=== PATIENT | female | born 1960 | race African-American/Black ===

== ENCOUNTER → 2016-04-20 | Outpatient (CLI) | payer OTHER ==
[2014-12-13 14:05] VITALS: BP 124/61
--- NOTE | 2016-04-21 09:31 | RAD ---
DATE: 04/20/2016 EXAM: DIGITAL SCREEN BILAT W/CAD HISTORY: Routine screening COMPARISON: Baseline study This study was interpreted with the benefit of Computerized Aided Detection (CAD). FINDINGS: There are scattered fibroglandular densities in the breasts. There is a 6 mm smooth nodular opacity projected over the upper outer quadrant of the right breast. There is a slightly smaller nodule projected over the posterior aspect of the right breast near the midline on the cc view, probably lying at the 6:00 location. A more elongated small nodular opacity projected over the posterior aspect of the left breast near the midline in the CC projection demonstrates a hilar lucency and may be a lymph node. Minimal benign type calcifications are noted. No suspicious microcalcifications are evident. IMPRESSION: Small bilateral breast nodules as described above. Diagnostic mammograms to include spot compression and straight medial lateral views and potentially breast ultrasound is suggested for further evaluation. BI-RADS CATEGORY: 0 INCOMPLETE: NEEDS ADDITIONAL IMAGING EVALUATION AND/OR PRIOR MAMMOGRAMS FOR COMPARISON. RECOMMENDED FOLLOW-UP: ADD ADDITIONAL IMAGING PQRS compliance statement: Patient information was entered into a reminder system with a target due date for the next mammogram. Mammography is a sensitive method for finding small breast cancers, but it does not detect them all and is not a substitute for careful clinical examination. A negative mammogram does not negate a clinically suspicious finding and should not result in delay in biopsying a clinically suspicious abnormality. "Our facility is accredited by the [employer] Mammography [employer]."
== END | disposition home or self-care (01) ==
LOC: MAMMO 17:06
DX: Z12.31 Encounter for screening mammogram for malignant neoplasm of breast (principal)
CPT/HCPCS: G0202; 77067

== ENCOUNTER → 2016-04-30 | Outpatient (CLI) | payer OTHER ==
[2014-12-13 14:05] VITALS: BP 124/61
--- NOTE | 2016-04-30 14:54 | RAD ---
DATE: 04/30/16 EXAM: Bilateral digital diagnostic mammograms and bilateral breast ultrasound HISTORY: Nodules seen in both breasts on screening baseline mammogram COMPARISON: None available, this is a baseline exam This study was interpreted with the benefit of Computerized Aided Detection (CAD). TECHNIQUE: 90 the mediolateral as well as CC spot compression views of both breasts are obtained. FINDINGS: Mammogram: 2 well-defined nodules are seen in the right breast one of which is in the outer and upper right breast probably at 10:00 position and the second nodule is situated at 6:00 position and which persists on the spot compression views. There is also a nodularity in the in the left breast which also persists. Ultrasound to follow. Bilateral breast ultrasound was performed in the areas of concern. There is a 5.0 x 2.9 mm anechoic cyst behind the right nipple. There is also a 4.9 x 4.8 mm anechoic cyst with fine internal echoes at 10:00 position in the right breast. Both these correspond to the areas of mammographic concern Scanning in the left breast demonstrates a 6.3 mm lymph node deep in the left breast at 2:00 position, 4 cm from the nipple IMPRESSION: 1. Persistent nodules redemonstrated in both breasts. Nodules in the right breast correspond to cysts, one of which at 10:00 position demonstrates fine internal echoes. Six-month follow-up right breast ultrasound may be obtained to ensure interval stability. 2. Small benign-appearing 6.3 mm lymph node in the left breast corresponds to the area of mammographic concern BI-RADS CATEGORY: 3 PROBABLE BENIGN-SHORT TERM F/U RECOMMENDED FOLLOW-UP: 6M 6 MONTH FOLLOW-UP ultrasound of the right breast PQRS compliance statement: Patient information was entered into a reminder system with a target due date for the next mammogram. Mammography is a sensitive method for finding small breast cancers, but it does not detect them all and is not a substitute for careful clinical examination. A negative mammogram does not negate a clinically suspicious finding and should not result in delay in biopsying a clinically suspicious abnormality. "Our facility is accredited by the [employer] Mammography [employer]."
== END | disposition home or self-care (01) ==
LOC: MAMMO 13:05
DX: R92.8 Other abnormal and inconclusive findings on diagnostic imaging of breast (principal); N63 Unspecified lump in breast
CPT/HCPCS: 76641; G0204; 77066